=== PATIENT | female | born 1965 | race Caucasian/White ===

== ENCOUNTER 2018-11-04 10:29 | Day surgery (SDC) | payer BC ==
[~2018-11-04] VITALS: Ht 144.8 cm; Wt 71.2 kg
[2018-11-04] VITALS (9 sets, daily range): BP systolic 94–156; BP diastolic 50–73; PULSE 68–80; RESP 12–24; Ht 144.8 cm; Wt 71.2 kg
--- NOTE | 2018-11-04 11:41 | PREAC ---
Date/Time of Note Date/Time of Note DATE: 11/04/18 TIME: 11:38 Anesthesia Eval and Record Evaluation Time Pre-Procedure Interview DATE: 11/04/18 TIME: 11:38 Age 53 Sex female NPO: 8 hrs Preoperative diagnosis right thigh mass Planned procedure excision of mass on right thigh, local advancement flap Past Medical History Past Medical History: Includes Cardio: Dyslipidemia Surgery & Anesthesia Issues No known issue (never had anesthesia) Meds Anticoagulation: No Beta Kirk within 24 hr: No Reason Beta Kirk not given: Pt. not on B-Kirk No Active Prescriptions or Reported Meds Current Medications Cefazolin Sodium/ Dextrose 50 ml @ 100 mls/hr PREOP IVPB ; Start 11/04/18 at 12:30; Stop 11/04/18 at 19:00 Sodium Chloride 1,000 ml @ 75 mls/hr [id number] IV ; Start 11/04/18 at 12:30; Stop 11/04/18 at 19:00 Meds reviewed: Yes Allergies Coded Allergies: No Known Allergy (Unverified , 11/04/18) Allergies Reviewed: Yes Labs/Studies Labs Reviewed: Reviewed by anesthesiologist test: Negative Studies: ECG, CXR Pre-procedure Exam Airway: Adequate mouth opening, Adequate thyromental dist Mallampati: Mallampati II Teeth: Normal (dentures are out ) Lung: Normal Heart: Normal ASA Physical Status ASA physical status: 2 Emergency: None Planned Anesthetic General/MAC: MAC Planned Pain Management Parenteral pain med, Local by surgeon Pre-operative Attestations Prior to commencing anesthesia and surgery, the patient was re-evaluated, there was verification of: *The patient's identity *The results of appropriate recent lab work and preoperative vital signs *The above evaluation not changing prior to induction *Anesthetic plan, risk benefits, alternative and complications discussed with patient/family; questions answered; patient/family understands, accepts and wishes to proceed. GENNY POOLE November 04, 2018 11:41
[2018-11-04] MEDS ORDERED: SOD CHLORIDE 0.9% 1,000 ML IV SCH (12:30)
[2018-11-04] MEDS ORDERED: CEFAZOLIN 2 GM/50 ML (PMX) 50 ML IVPB SCH (12:30)
--- NOTE | 2018-11-04 13:12 | HPN ---
Date/Time of Note Date/Time of Note DATE: 11/04/18 TIME: 13:11 Interval H&P Admission Note Pt. seen H&P reviewed: No system changes MARK GRIMES MD November 04, 2018 13:12
[2018-11-04] MEDS ORDERED: FENTAnyl 50 MCG/ML VIAL ONE (13:14)
[2018-11-04] MEDS ORDERED: LIDOCAINE 100 MG SYRINGE ONE (13:14)
[2018-11-04] MEDS ORDERED: MIDAZOLAM 1 MG/ML 2 ML INJ ONE (13:14)
[2018-11-04] MEDS ORDERED: CEFAZOLIN 1 GM INJ ONE (13:14)
[2018-11-04] MEDS ORDERED: PROPOFOL 20 ML ONE ×2 (13:14→14:07)
[2018-11-04] MEDS ORDERED: BUPIVACAINE 0.25%/EPI (SDV) 30 ML INJ ONE (13:24)
[2018-11-04] MEDS ORDERED: OXYCODONE/ACETAMINOPHEN (5/325) TAB PO PRN ×2 (13:30)
[2018-11-04] MEDS ORDERED: ONDANSETRON 4 MG INJ IV PRN ×2 (13:30→14:30)
[2018-11-04] MEDS ORDERED: FENTAnyl 50 MCG/ML VIAL IV PRN ×3 (13:30)
[2018-11-04] MEDS ORDERED: LIDOCAINE 1%/EPI (1:100,000) (MDV) 20 ML ONE (13:51)
[2018-11-04] MEDS ORDERED: BUPIVACAINE 0.25% (MPF) 30 ML INJ ONE (13:51)
--- NOTE | 2018-11-04 14:29 | OPR ---
Date/Time of Note Date/Time of Note DATE: 11/04/18 TIME: 14:22 Operative Report Procedure Date: November 04, 2018 Preoperative Diagnosis Right lower leg mass Postoperative Diagnosis Right lower leg mass Operation/Procedure Performed 1. Excision of right lower leg mass, 3.5 x 1.5 cm 2. Creation of left and right side local advancement flaps Surgeon see signature line Dental Mold Maker None Anesthesia Type: MAC Anesthesiologist: GENNY POOLE Estimated Blood Loss: minimal Transfusion none Specimen Right lower leg mass, 3.5 x 1.5 cm Grafts/Implants none Complications none Pt Condition Post Procedure: stable Disposition: PACU Indications The patient is a 53-year-old female who presented to the office complaining of a mass of the right lower leg for the past year. She reported growth and pain, especially on exertion. She was found to have a mass in the pretibial area of the right lower leg. Patient was scheduled for excision for symptom relief and definitive pathological diagnosis. All risks and benefits of the procedure including, but not limited to: Wound infection, excessive bleeding, postoperative seroma/hematoma formation, wound complications, mass recurrence, etc. were all explained to the patient in full detail. She understood and wished to proceed with the procedure. Informed consent was obtained. Procedure Description The patient brought to the operating room and placed supine on the operating table. Bilateral sequential compression devices were placed on both lower ex tremities. A dose of broad-spectrum perioperative intravenous antibiotics was given. After the induction of adequate sedation the patient's right leg was prepped and draped in standard surgical fashion. At the mass which was located in the pretibial region of the right lower leg was preoperatively marked and confirmed with the patient in the holding area. After performance of the surgical timeout 1% lidocaine with epinephrine was injected in a radial fashion around the mass creating a field block. An elliptical incision was performed around the mass using a 15 blade scalpel. The incision was carried down through the skin and dermis into the subcutaneous tissues. The mass was located within the skin and the dermis. Once circumferentially dissected it was transected at its base in the subcutaneous fat layer. Marking stitch was used to bill the superior aspect. Excision measured 3.5 x 1.5 cm. Circumferential local advancement flaps were then created to aid in tension-free closure. The wound cavity was then irrigated with warm saline and the irrigant returned clear. Hemostasis was noted to be total. 0.25% Marcaine was then injected around the area of the incision. Incision was then closed in layers using interrupted 3-0 Vicryl sutures for the dermal layer. The skin was reapproximated using 2-0 nylon sutures in vertical mattress fashion. Incision was cleaned and sterile dressings were applied. Patient was awoken from anesthesia and transported to recovery room in stable condition. All counts were correct at the end the case x2 MARK GRIMES MD November 04, 2018 14:29
[2018-11-04] MEDS ORDERED: IBUPROFEN 600 MG TAB PO PRN (14:30)
[2018-11-04] MEDS ORDERED: KETOROLAC 30 MG INJ IV PRN (14:30)
--- NOTE | 2018-11-05 13:34 | PAC ---
Date/Time of Note Date/Time of Note DATE: 11/05/18 TIME: 13:34 Post-Anesthesia Notes Post-Anesthesia Note Last documented vital signs Vital Signs Date Temp Pulse Resp B/P (MAP) Pulse Ox O2 O2 Flow FiO2 Time Delivery Rate 11/04/18 97.5 68 18 119/56 99 15:00 (77) 68 11/04/18 Room Air 14:57 Activity: WNL Respiratory function: WNL Cardiovascular function: WNL Mental status: Baseline Pain reasonably controlled: Yes Hydration appropriate: Yes Nausea/Vomiting absent: Yes GENNY POOLE November 05, 2018 13:34
== END 2018-11-04 16:00 | disposition home or self-care (01) ==
LOC: SDS 10:29
PROVIDERS: ATTEND Surgery
DX: D23.71 Other benign neoplasm of skin of right lower limb, including hip (principal)
CPT/HCPCS: 14020; 88307; J0690; J2001; J2250; J3010; Z7512; Z7610